=== PATIENT | male | born 1995 | race Hispanic/Latino ===

== ENCOUNTER 2016-12-16 17:23 | Emergency (ER) | payer OTHER ==
[~2016-12-16] VITALS: Ht 177.8 cm; Wt 90.0 kg
[2016-12-16] MEDS ORDERED: NORCO1 TA1 PO (18:32)
[2016-12-16 18:44] VITALS: BP 152/73
== END 2016-12-16 19:04 | disposition home or self-care (01) | DRG 605 ==
LOC: ED 17:23
DX: S00.03XA Contusion of scalp, initial encounter (principal); M25.512 Pain in left shoulder; Y04.2XXA Assault by strike against or bumped into by another person, initial encounter; Y93.89 Activity, other specified; Y92.148 Other place in prison as the place of occurrence of the external cause; Y99.0 Civilian activity done for income or pay; R40.2412 Glasgow coma scale score 13-15, at arrival to emergency department